=== PATIENT | male | born 1985 | race Caucasian/White ===

== ENCOUNTER 2019-02-03 12:04 | Outpatient (CLI) | payer OTHER ==
--- NOTE | 2019-02-03 13:40 | ULT ---
LEFT LOWER EXTREMITY VENOUS DUPLEX EXAM: INDICATIONS: Left lower extremity pain and edema. TECHNIQUE: The deep veins of the left lower extremity are evaluated with color Doppler, spectral analysis, and c ompression. FINDINGS: The deep veins of the left lower extremity show normal blood flow and compression. No evidence of DV T. IMPRESSION: No evidence of left lower extremity deep venous thrombosis. POS: [facility]
== END 2019-02-03 12:05 | disposition home or self-care (01) ==
LOC: BICULT 12:04
PROVIDERS: ATTEND Family Medicine
DX: R60.0 Localized edema (principal)